=== PATIENT | male | born 1955 | race Caucasian/White ===

== ENCOUNTER 2020-07-09 11:10 | Outpatient (REF) | payer OTHER, SELFPAY | END 2020-07-09 11:11 | disposition home or self-care (01) | LOC: HO.LAB 11:10 | PROVIDERS: Visit Provider Internal Medicine | DX: Z20.828 Contact with and (suspected) exposure to other viral communicable diseases (principal) | CPT/HCPCS: C9803; U0003 ==

== ENCOUNTER 2023-06-28 09:59 | Outpatient (AMB) | payer OTHER, SELFPAY ==
[2023-06-28 10:13] VITALS: BP 152/100; PULSE 64; O2SAT 97; BMI 23.4
--- NOTE | 2023-06-28 10:13 | MHC.PC.OV ---
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: No Accompanied by: Self / Same As Patient Allergies Biaxin Allergy (Intermediate, Verified 12/27/23 13:49) vomiting, nausea Medication List - Last Reconciled 06/28/23 by Baljeet Iqbal MD doxycycline monohydrate 100 mg PO DAILY 30 days lisinopril 10 mg PO DAILY 90 days sildenafil 50 mg PO DAILY PRN 30 days Tobacco use date assessed: 06/28/23 Fall risk assessment: No Falls in past year Last assessed Fall Risk: 06/28/23 Dental Screening Dental Screen Date: 06/28/23 Did you have a dental visit in the last 12 months?: Yes Did you have a dental problem in the last 6 months where you did not have access to dental care?: No Was dental information given to patient?: Patient has dentist HPI pe HPI Details Patient comes in today for his annual physical examination States that he has been struggling with passing out kidney stones repeatedly over the past few months Has not had any bouts in the past 2 weeks and states that he feels okay otherwise He denies any headaches or dizziness Denies any chest pains, no SOB No nausea/vomiting, no abdominal pain No change in bowel habits noted [facility] Medical History (Updated 12/27/23 @ 14:09 by Baljeet Iqbal MD) Renal calculi Vitamin D deficiency Benign essential hypertension Erectile dysfunction Rosacea Surgical History History of colonoscopy History of esophagogastroduodenoscopy (EGD) Family History Father Alzheimers disease Mother Lung cancer Hypertension Brother Throat cancer Social History Housing: House Patient Tobacco Use Status: Never used Tobacco e-Cigarette/Vaping Use: Never Used Second Hand Smoke Exposure: No service: No Current occupational status: employed Cognitive needs: No Hearing needs: No Vision needs: Yes Questionnaire PHQ-9 Over the last 2 weeks, how often have you been bothered by any of the following problems? 1. Little interest or pleasure in doing things: not at all 2. Feeling down, depressed, or hopeless: not at all 3. Trouble falling or staying asleep, or sleeping too much: not at all 4. Feeling tired or having little energy: not at all 5. Poor appetite or overeating: not at all 6. Feeling bad about yourself - or that you are a failure or have let yourself or your family down: not at all 7. Trouble concentrating on things, such as reading the newspaper or watching television: not at all 8. Moving or speaking so slowly that other people could have noticed. Or the opposite - being so fidgety or restless that you have been moving around a lot more than usual: not at all 9. Thoughts that you would be better off or of hurting yourself in some way: not at all Total score: 0 Depression Screening Interpretation: Negative Depression Screening Done: Yes 25342 - PHQ-9 Billing: Yes Source: Developed by Drs. Socrates Dueñas, Tatiana Diego, Augusto Franco and colleagues, with an educational rodney from [employer]. Thrive Questionnaire Date Thrive assessed: 06/28/23 I am a: Patient What is your living situation today?: I have a steady place to live Within the past 12 months, did the food you bought not last and you didn't have the money to get more?: Never true Within the past 12 months, did you worry whether your food would run out before you got money to buy more?: Never true Do you have trouble paying for medicines?: No Do you have trouble getting transportation to medical appointments?: No Do you have trouble paying your heating and electricity bill?: No Do you have trouble taking care of your child, family member or friend?: No Do you have trouble with day-to-day activities such as bathing, preparing meals, shopping, managing finances, etc.?: No Are you currently unemployed and looking for a job?: No Are you interested in more education?: No Currently or been in a relationship where the following occur: no concerns reported AUDIT C Alcohol Use Questionnaire (AUDIT-C) 1. How often do you have a drink containing alcohol?: Monthly or less 2. How many drinks containing alcohol do you have on a typical day when you are drinking?: 1 or 2 3. How often do you have six or more drinks on one occasion?: Never Total Score: 1 Score Reviewed/Action Taken: Yes JULI-7 AMB Questionnaire JULI-7 Date JULI - 7 assessed: 06/28/23 Feeling nervous, anxious, or on edge: 0 = Not at all Not being able to stop or control worryin = Not at all Worrying too much about different things: 0 = Not at all Trouble relaxin = Not at all Being so restless that it is hard to sit still: 0 = Not at all Becoming easily annoyed or irritable: 0 = Not at all Feeling afraid as if something awful might happen: 0 = Not at all Total JULI-7 score (0-4 normal; 5-9 mild; 10-14 moderate; 15-21 severe): 0 Source: Developed by Drs. Socrates Dueñas, Tatiana Diego, Augusto Franco and colleagues, with an educational rodney from [employer]. Review of Systems Const Denies chills, Denies fatigue, Denies fever(s), Denies headache(s), Denies malaise and Denies weakness Eyes Denies blurry vision, Denies change in vision, Denies irritation and Denies itchy eyes ENT Denies dysphagia, Denies dizziness, Denies otalgia, Denies headache(s), Denies nasal congestion, Denies neck pain, Denies odynophagia and Denies sore throat Card Denies chest pain, Denies rapid heart rate, Denies irregular heart rhythm, Denies palpitations and Denies dyspnea Resp Denies chest congestion, Denies cough, Denies dyspnea and Denies wheezing GI Denies abdominal pain, Denies bloating, Denies constipation, Denies dysphagia, Denies heartburn, Denies diarrhea, Denies nausea, Denies odynophagia and Denies vomiting Reports hematuria (at times), Denies difficulty urinating, Reports dysuria (at times recently - due to kidney stones), Reports flank pain (on and off over the left flank recently - due to kidney stones), Denies urinary frequency and Denies urinary urgency Musc Denies back pain, Denies arthralgias, Denies joint swelling, Denies muscle weakness and Denies neck pain Skin/Breast Denies change in pigmentation, Denies lesions, Denies rash and Denies unusual bruising Neuro Denies dizziness, Denies headache(s), Denies paresthesias and Denies weakness Endo Denies fatigue and Denies palpitations Aller/Immun Denies itchy eyes and Denies wheezing Physical exam (Primary Care) Vital Signs: Last Vital Signs Pulse 64 06/28/23 10:13 BP 158/100 H 06/28/23 11:09 Pulse Ox 97 06/28/23 10:13 Oxygen Delivery Method Room Air 06/28/23 10:13 BMI result Body Mass Index 23.4 Tobacco/Smoking Status: Tobacco use Status Tobacco use date assessed 06/28/23 06/28/23 10:19 Patient Tobacco Use Status Never used Tobacco 06/28/23 10:19 e-Cigarette/Vaping Use Never Used 06/28/23 10:19 PHQ-9: PHQ-9 Score PHQ-9: Total score 0 06/28/23 12:42 Depression Screening Interpretation: Negative Thrive Assessment: Date of Thrive Assessment Date Thrive assessed 06/28/23 06/28/23 10:19 Currently or been in a relationship where the following occur: no concerns reported Const General: no acute distress, alert and awake Orientation/consciousness: patient oriented x3 HENMT Head: Yes normocephalic and Yes atraumatic Ears: external ears normal, TM's normal bilaterally and EAC's normal General nose exam: No nasal discharge present Face and sinus: Yes normal facial exam and Yes sinuses nontender Teeth and gingiva: dentition normal Throat: Yes posterior oropharynx normal and Yes tonsils normal (no TP congestion) Eyes Eyelids: Yes eyelids normal Conjunctivae: conjunctivae normal Pupils: Equal, round and reactive pupils present EOM: EOMs intact bilaterally Neck Neck: Yes no lymphadenopathy and Yes supple Thyroid: Thyroid normal Resp Auscultation: clear to auscultation bilaterally, no rales and no wheezes Cardio Rate: regular rate Rhythm: regular rhythm Heart sounds: no murmurs GI Palpation (GI): Soft to palpation, nontender and No hepatosplenomegaly present Auscultation: normal bowel sounds General: Yes no CVA tenderness Back/Spine/Pelvis Back: no CVA tenderness Thoracic/Lumbar Spine: thoracic and lumbar spine normal to inspection Skin Lesions: no lesions Rashes: no rashes Neuro General: patient oriented x3, moves all extremities, no focal motor deficits and CN's II-XI intact bilaterally Cranial nerves: Yes Equal, round and reactive pupils present Cognition (Neuro): normal cognition Gait exam (Neuro): Normal gait present Extrem General: Yes no clubbing, cyanosis or edema Assessment and Plan Assessment & Plan (1) Annual physical exam: Code(s): Z00.00 - Encounter for general adult medical examination without abnormal findings Plan: Check labs - he is instructed to try getting his previously ordered labs done PADMA He is up-to-date with his colon cancer screening and is not yet due for repeat colonoscopy - due in 2024 (2) Benign essential hypertension: Code(s): I10 - Essential (primary) hypertension Plan: Reinforced low sodium diet - goal is systolic BP of 120 to 130 mm or less Continue Lisinopril 10 mg QD (3) Rosacea: Code(s): L71.9 - Rosacea, unspecified Plan: He takes Doxycycline 100 mg QD for at least a month or two as needed for flare ups of his rosacea Follow up with dermatology as scheduled (4) Renal calculi: Code(s): N20.0 - Calculus of kidney Plan: Retroperitoneal US done at [facility] in February 2023 showed (+) 0.4 cm renal stone in the left lower pole of the left kidney Patient states that he has been experiencing recurrent bouts of flank pains and painful urination at times recently - is likely passing out kidney stones but this seems to have calmed down in the past 1 to 2 weeks He is reminded to increase his oral fluid intake regularly (5) Erectile dysfunction: Code(s): N52.9 - Male erectile dysfunction, unspecified Qualifiers: Erectile dysfunction type: unspecified Qualified Code(s): N52.9 - Male erectile dysfunction, unspecified Plan: Continue Sildenafil 50 mg QD PRN (6) Vitamin D deficiency: Code(s): E55.9 - Vitamin D deficiency, unspecified Plan: Corrected on his labs done back on 10/02/2022 Plan Patient is encouraged to continue to watch his diet, exercise regularly and take his medications as prescribed Follow up in 6 months Coding Level of Care Code Est Pt Prev Care >65y(20125) Diagnoses Annual physical exam Z00.00 Benign essential hypertension I10 Rosacea L71.9 Renal calculi N20.0 Erectile dysfunction, unspecified erectile dysfunction type N52.9 Erectile dysfunction type: unspecified Vitamin D deficiency E55.9
[2023-06-28 11:09] VITALS: BP 158/100
== END 2023-06-28 11:19 | disposition home or self-care (01) ==
PROVIDERS: Visit Provider Internal Medicine
DX: Z00.00 Encounter for general adult medical examination without abnormal findings (principal); I10 Essential (primary) hypertension; L71.9 Rosacea, unspecified; N20.0 Calculus of kidney; N52.9 Male erectile dysfunction, unspecified; E55.9 Vitamin D deficiency, unspecified
CPT/HCPCS: 99499

== ENCOUNTER 2023-12-27 13:15 | Outpatient (AMB) | payer MEDICARE, SELFPAY ==
[2023-12-27 13:19] VITALS: BP 134/78; PULSE 65; O2SAT 97; BMI 23.3
--- NOTE | 2023-12-27 13:19 | MHC.PC.OV ---
Vital Signs 12/27/23 13:19 Height 5 ft 9 in Weight 158 lb BMI 23.3 BP 134/78 Blood Pressure Location Lt brachial Position Sitting Pulse 65 Pulse Source Pulse Oximeter Pulse Oximetry (%) 97 Oxygen Delivery Method Room Air Intake Visit Reasons: HTN, renal calculi Special Event Assistant Required: No Allergies Biaxin Allergy (Intermediate, Verified 12/27/23 13:49) vomiting, nausea Medication List - Last Reconciled 12/27/23 by Baljeet Iqbal MD lisinopril 10 mg PO DAILY 90 days sildenafil 50 mg PO DAILY PRN 30 days Tobacco use date assessed: 12/27/23 Fall risk assessment: No Falls in past year Last assessed Fall Risk: 12/27/23 Dental Screening Dental Screen Date: 12/27/23 HPI HTN, renal calculi HPI Details Patient comes in today for his follow up visit States that he feels okay He denies any headaches or dizziness Denies any chest pains, no SOB No nausea/vomiting, no abdominal pain No change in bowel habits noted States that he has not had any flare ups of his kidney stones lately Relates that he had his labs done sometime last June or July 2023 at the lab at [facility] - would like to know if his results came out okay Also needs his Lisinopril Rx refilled PFSH Medical History (Updated 12/27/23 @ 14:09 by Baljeet Iqbal MD) Renal calculi Vitamin D deficiency Benign essential hypertension Erectile dysfunction Rosacea Surgical History History of colonoscopy History of esophagogastroduodenoscopy (EGD) Family History Father Alzheimers disease Mother Lung cancer Hypertension Brother Throat cancer Social History Housing: House Patient Tobacco Use Status: Never used Tobacco e-Cigarette/Vaping Use: Never Used Second Hand Smoke Exposure: No service: No Current occupational status: employed Cognitive needs: No Hearing needs: No Vision needs: Yes Questionnaire PHQ-9 Over the last 2 weeks, how often have you been bothered by any of the following problems? 1. Little interest or pleasure in doing things: not at all 2. Feeling down, depressed, or hopeless: not at all 3. Trouble falling or staying asleep, or sleeping too much: not at all 4. Feeling tired or having little energy: not at all 5. Poor appetite or overeating: not at all 6. Feeling bad about yourself - or that you are a failure or have let yourself or your family down: not at all 7. Trouble concentrating on things, such as reading the newspaper or watching television: not at all 8. Moving or speaking so slowly that other people could have noticed. Or the opposite - being so fidgety or restless that you have been moving around a lot more than usual: not at all 9. Thoughts that you would be better off or of hurting yourself in some way: not at all Total score: 0 Depression Screening Interpretation: Negative Depression Screening Done: Yes 11950 - PHQ-9 Billing: Yes Source: Developed by Drs. Socrates Dueñas, Tatiana Diego, Augusto Franco and colleagues, with an educational rodney from [employer]. Thrive Questionnaire Date Thrive assessed: 12/27/23 I am a: Patient What is your living situation today?: I have a steady place to live Within the past 12 months, did the food you bought not last and you didn't have the money to get more?: Never true Within the past 12 months, did you worry whether your food would run out before you got money to buy more?: Never true Do you have trouble paying for medicines?: No Do you have trouble getting transportation to medical appointments?: No Do you have trouble paying your heating and electricity bill?: No Do you have trouble taking care of your child, family member or friend?: No Do you have trouble with day-to-day activities such as bathing, preparing meals, shopping, managing finances, etc.?: No Are you currently unemployed and looking for a job?: No Are you interested in more education?: No Currently or been in a relationship where the following occur: no concerns reported THRIVE Score: 0 AUDIT C Alcohol Use Questionnaire (AUDIT-C) 1. How often do you have a drink containing alcohol?: Monthly or less 2. How many drinks containing alcohol do you have on a typical day when you are drinking?: 1 or 2 3. How often do you have six or more drinks on one occasion?: Never Total Score: 1 Score Reviewed/Action Taken: Yes JULI-7 AMB Questionnaire JULI-7 Date JULI - 7 assessed: 06/28/23 Source: Developed by Drs. Socrates Dueñas, Tatiana Diego, Augusto Franco and colleagues, with an educational rodney from [employer]. Review of Systems Const Denies chills, Denies fatigue, Denies fever(s) and Denies headache(s) ENT Denies dysphagia, Denies dizziness, Denies otalgia, Denies headache(s), Denies neck pain, Denies odynophagia and Denies sore throat Card Denies chest pain, Denies palpitations and Denies dyspnea Resp Denies cough and Denies dyspnea GI Denies abdominal pain, Denies constipation, Denies dysphagia, Denies heartburn, Denies diarrhea, Denies nausea, Denies odynophagia and Denies vomiting Denies hematuria, Denies dysuria, Denies nocturia and Denies urinary frequency Musc Denies back pain and Denies neck pain Skin/Breast Denies rash Neuro Denies dizziness and Denies headache(s) Endo Denies fatigue and Denies palpitations Physical exam (Primary Care) Vital Signs: Last Vital Signs Pulse 65 12/27/23 13:19 BP 134/78 12/27/23 13:19 Pulse Ox 97 12/27/23 13:19 Oxygen Delivery Method Room Air 12/27/23 13:19 BMI result Body Mass Index 23.3 Tobacco/Smoking Status: Tobacco use Status Tobacco use date assessed 12/27/23 12/27/23 13:20 Patient Tobacco Use Status Never used Tobacco 12/27/23 13:20 e-Cigarette/Vaping Use Never Used 12/27/23 13:20 PHQ-9: PHQ-9 Score PHQ-9: Total score 0 12/27/23 13:20 Depression Screening Interpretation: Negative Thrive Assessment: Date of Thrive Assessment Date Thrive assessed 12/27/23 12/27/23 13:20 Currently or been in a relationship where the following occur: no concerns reported Const General: no acute distress and alert HENMT Throat: Yes posterior oropharynx normal and Yes tonsils normal (no TP congestion) Neck Neck: Yes no lymphadenopathy and Yes supple Thyroid: Thyroid normal Resp Auscultation: clear to auscultation bilaterally, no rales and no wheezes Cardio Rate: regular rate Rhythm: regular rhythm Heart sounds: no murmurs GI Palpation (GI): Soft to palpation and nontender Auscultation: normal bowel sounds General: Yes no CVA tenderness Back/Spine/Pelvis Back: no CVA tenderness Thoracic/Lumbar Spine: No lumbar spinal tenderness Skin Rashes: no rashes Extrem General: Yes no clubbing, cyanosis or edema Assessment and Plan Assessment & Plan (1) Benign essential hypertension: Code(s): I10 - Essential (primary) hypertension Plan: Reinforced low sodium diet - goal is systolic BP of 120 to 130 mm or less Continue Lisinopril 10 mg QD - Rx refilled Will try to get [facility] labs to send over a copy of his most recent lab results done late last year - patient advised that we have not received a copy of his most recent labs done so we are not able to discuss his results with him at this time Advised that we will reach out to him when we have his results and there is anything unusual that comes up on his reports (2) Rosacea: Code(s): L71.9 - Rosacea, unspecified Plan: He takes Doxycycline 100 mg QD for at least a month or two as needed for flare ups of his rosacea Follow up with dermatology as scheduled (3) Vitamin D deficiency: Code(s): E55.9 - Vitamin D deficiency, unspecified Plan: Will see how his most recent vitamin D level is once we get his lab results in His vitamin D level was corrected/normal when last checked over a year ago (4) Renal calculi: Code(s): N20.0 - Calculus of kidney Plan: Retroperitoneal US done at [facility] in February 2023 showed (+) 0.4 cm renal stone in the left lower pole of the left kidney Patient states that he has not had any bouts or flare ups of his kidney stones lately He is reminded to increase his oral fluid intake regularly (5) Erectile dysfunction: Code(s): N52.9 - Male erectile dysfunction, unspecified Qualifiers: Erectile dysfunction type: unspecified Qualified Code(s): N52.9 - Male erectile dysfunction, unspecified Plan: Continue Sildenafil 50 mg QD PRN Plan To return in 6 months for his next annual physical examination Orders: Orders Complete Blood Count Auto Diff 6 Months D64.9 - Anemia, unspecified, Z00.00 - Encounter for general adult medical examination without abnormal findings TSH reflex Free T4 6 Months E78.00 - Pure hypercholesterolemia, unspecified, Z00.00 - Encounter for general adult medical examination without abnormal findings Comprehensive [place]. Panel Fast 6 Months E78.00 - Pure hypercholesterolemia, unspecified, Z00.00 - Encounter for general adult medical examination without abnormal findings Lipid Panel 6 Months E78.00 - Pure hypercholesterolemia, unspecified, Z00.00 - Encounter for general adult medical examination without abnormal findings UA CC w/rflx Micro + Cult 6 Months R30.0 - Dysuria, Z00.00 - Encounter for general adult medical examination without abnormal findings Prostate Specific Antigen 6 Months N40.0 - Benign prostatic hyperplasia without lower urinary tract symptoms, Z00.00 - Encounter for general adult medical examination without abnormal findings Vitamin D 25-OH Total 6 Months E55.9 - Vitamin D deficiency, unspecified, Z00.00 - Encounter for general adult medical examination without abnormal findings Medications: Refilled lisinopril 10 mg PO DAILY 90 days 90 tabs 3RF Coding Level of Care Code Est Pt Level 4 (14863) Diagnoses Benign essential hypertension I10 Rosacea L71.9 Vitamin D deficiency E55.9 Renal calculi N20.0 Erectile dysfunction, unspecified erectile dysfunction type N52.9 Erectile dysfunction type: unspecified
== END 2023-12-27 13:58 | disposition home or self-care (01) ==
PROVIDERS: PCP Internal Medicine; Visit Provider Internal Medicine
DX: I10 Essential (primary) hypertension (principal); L71.9 Rosacea, unspecified; E55.9 Vitamin D deficiency, unspecified; N20.0 Calculus of kidney; N52.9 Male erectile dysfunction, unspecified
CPT/HCPCS: 99214

== ENCOUNTER 2024-06-26 09:54 | Outpatient (AMB) | payer MEDICARE, SELFPAY ==
[2024-06-26 10:37] VITALS: BP 130/70; PULSE 71; O2SAT 97; BMI 23.4
--- NOTE | 2024-06-26 10:37 | A.OFFPC_ITS ---
Vital Signs 06/26/24 10:37 Height 5 ft 9 in Weight 158 lb 6 oz BMI 23.4 BP 130/70 Blood Pressure Location Lt brachial Position Sitting Pulse 71 Pulse Source Pulse Oximeter Pulse Oximetry (%) 97 Oxygen Delivery Method Room Air Intake Visit Reasons: annual exam Shoe Dresser Required: No Accompanied by: Self / Same As Patient Allergies Biaxin Allergy (Intermediate, Verified 06/26/24 11:17) vomiting, nausea Medication List - Last Reconciled 06/26/24 by Baljeet Iqbal MD doxycycline monohydrate 100 mg PO DAILY PRN lisinopril 10 mg PO DAILY 90 days sildenafil 50 mg PO DAILY PRN 30 days Tobacco use date assessed: 06/26/24 Fall risk assessment: No Falls in past year Last assessed Fall Risk: 06/26/24 Dental Screening Dental Screen Date: 06/26/24 Did you have a dental visit in the last 12 months?: No Did you have a dental problem in the last 6 months where you did not have access to dental care?: No Was dental information given to patient?: Patient has dentist HPI annual exam HPI Details Patient comes in today for his annual physical examination States that he feels okay He denies any headaches or dizziness Denies any chest pains, no SOB No nausea/vomiting, no abdominal pain No change in bowel habits noted He denies any acute urinary symptoms He was not able to get his follow-up labs done prior to his visit today - states that he will try to get them done as soon as possible He had his screening colonoscopy done back in September 2014 at [facility] and he will be due for repeat colonoscopy in a few months (2024) [facility] Medical History Renal calculi Vitamin D deficiency Benign essential hypertension Erectile dysfunction Rosacea Surgical History History of colonoscopy History of esophagogastroduodenoscopy (EGD) Family History Father Alzheimers disease Mother Lung cancer Hypertension Brother Throat cancer Social History Housing: House Patient Tobacco Use Status: Never used Tobacco e-Cigarette/Vaping Use: Never Used Second Hand Smoke Exposure: No service: No Current occupational status: employed Cognitive needs: No Hearing needs: No Vision needs: Yes Questionnaire PHQ-9 Over the last 2 weeks, how often have you been bothered by any of the following problems? 1. Little interest or pleasure in doing things: not at all 2. Feeling down, depressed, or hopeless: not at all 3. Trouble falling or staying asleep, or sleeping too much: not at all 4. Feeling tired or having little energy: not at all 5. Poor appetite or overeating: not at all 6. Feeling bad about yourself - or that you are a failure or have let yourself or your family down: not at all 7. Trouble concentrating on things, such as reading the newspaper or watching television: not at all 8. Moving or speaking so slowly that other people could have noticed. Or the opposite - being so fidgety or restless that you have been moving around a lot more than usual: not at all 9. Thoughts that you would be better off or of hurting yourself in some way: not at all Total score: 0 Depression Screening Interpretation: Negative Depression Screening Done: Yes 46847 - PHQ-9 Billing: Yes Source: Developed by Drs. Socrates Dueñas, Tatiana Diego, Augusto Franco and colleagues, with an educational rodney from [employer]. Thrive Questionnaire Date Thrive assessed: 06/26/24 I am a: Patient What is your living situation today?: I have a steady place to live Within the past 12 months, did the food you bought not last and you didn't have the money to get more?: Never true Within the past 12 months, did you worry whether your food would run out before you got money to buy more?: Never true Do you have trouble paying for medicines?: No Do you have trouble getting transportation to medical appointments?: No Do you have trouble paying your heating and electricity bill?: No Do you have trouble taking care of your child, family member or friend?: No Do you have trouble with day-to-day activities such as bathing, preparing meals, shopping, managing finances, etc.?: No Are you currently unemployed and looking for a job?: No Are you interested in more education?: No Please select the resources that you would like help with: None Currently or been in a relationship where the following occur: No concerns reported THRIVE Score: 0 AUDIT C Alcohol Use Questionnaire (AUDIT-C) 1. How often do you have a drink containing alcohol?: Monthly or less 2. How many drinks containing alcohol do you have on a typical day when you are drinking?: 1 or 2 3. How often do you have six or more drinks on one occasion?: Never Total Score: 1 Score Reviewed/Action Taken: Yes JULI-7 AMB Questionnaire JULI-7 Date JULI - 7 assessed: 06/26/24 Feeling nervous, anxious, or on edge: 0 = Not at all Not being able to stop or control worryin = Not at all Worrying too much about different things: 0 = Not at all Trouble relaxin = Not at all Being so restless that it is hard to sit still: 0 = Not at all Becoming easily annoyed or irritable: 0 = Not at all Feeling afraid as if something awful might happen: 0 = Not at all Total JULI-7 score (0-4 normal; 5-9 mild; 10-14 moderate; 15-21 severe): 0 Source: Developed by Drs. Socrates Dueñas, Tatiana Diego, Augusto Franco and colleagues, with an educational rodney from [employer]. Review of Systems Const Denies chills, Denies fatigue, Denies fever(s), Denies headache(s), Denies malaise and Denies weakness Eyes Denies blurry vision, Denies change in vision, Denies irritation and Denies itchy eyes ENT Denies dysphagia, Denies dizziness, Denies otalgia, Denies headache(s), Denies nasal congestion, Denies neck pain, Denies odynophagia and Denies sore throat Card Denies chest pain, Denies rapid heart rate, Denies irregular heart rhythm, Denies palpitations and Denies dyspnea Resp Denies chest congestion, Denies cough, Denies dyspnea and Denies wheezing GI Denies abdominal pain, Denies bloating, Denies constipation, Denies dysphagia, Denies heartburn, Denies diarrhea, Denies nausea, Denies odynophagia and Denies vomiting Denies hematuria, Denies difficulty urinating, Denies dysuria, Denies urinary frequency and Denies urinary urgency Musc Denies back pain, Denies arthralgias, Denies joint swelling, Denies muscle wea kness and Denies neck pain Skin/Breast Denies change in pigmentation, Denies lesions, Denies rash and Denies unusual bruising Neuro Denies dizziness, Denies headache(s), Denies paresthesias and Denies weakness Endo Denies fatigue and Denies palpitations Aller/Immun Denies itchy eyes and Denies wheezing Physical exam (Primary Care) Vital Signs: Last Vital Signs Pulse 71 06/26/24 10:37 BP 130/70 06/26/24 10:37 Pulse Ox 97 06/26/24 10:37 Oxygen Delivery Method Room Air 06/26/24 10:37 BMI result Body Mass Index 23.4 Tobacco/Smoking Status: Tobacco use Status Tobacco use date assessed 06/26/24 06/26/24 10:41 Patient Tobacco Use Status Never used Tobacco 06/26/24 10:41 e-Cigarette/Vaping Use Never Used 06/26/24 10:41 PHQ-9: PHQ-9 Score PHQ-9: Total score 0 06/26/24 11:27 Depression Screening Interpretation: Negative Thrive Assessment: Date of Thrive Assessment Date Thrive assessed 06/26/24 06/26/24 10:41 Currently or been in a relationship where the following occur: No concerns reported Const General: no acute distress, alert and awake Orientation/consciousness: patient oriented x3 HENMT Head: Yes normocephalic and Yes atraumatic Ears: external ears normal, TM's normal bilaterally and EAC's normal General nose exam: No nasal discharge present Face and sinus: Yes normal facial exam and Yes sinuses nontender Teeth and gingiva: dentition normal Throat: Yes posterior oropharynx normal and Yes tonsils normal (no TP congestion) Eyes Eyelids: Yes eyelids normal Conjunctivae: conjunctivae normal Pupils: Equal, round and reactive pupils present EOM: EOMs intact bilaterally Neck Neck: Yes no lymphadenopathy and Yes supple Thyroid: Thyroid normal Resp Auscultation: clear to auscultation bilaterally, no rales and no wheezes Cardio Rate: regular rate Rhythm: regular rhythm Heart sounds: no murmurs GI Palpation (GI): Soft to palpation, nontender and No hepatosplenomegaly present Auscultation: normal bowel sounds General: Yes no CVA tenderness Back/Spine/Pelvis Back: no CVA tenderness Thoracic/Lumbar Spine: thoracic and lumbar spine normal to inspection Skin Lesions: no lesions Rashes: no rashes Neuro General: patient oriented x3, moves all extremities, no focal motor deficits and CN's II-XI intact bilaterally Cranial nerves: Yes Equal, round and reactive pupils present Cognition (Neuro): normal cognition Gait exam (Neuro): Normal gait present Extrem General: Yes no clubbing, cyanosis or edema Coding Level of Care Code Est Pt Prev Care >65y(20732) Diagnoses Annual physical exam Z00.00 Benign essential hypertension I10 Rosacea L71.9 Vitamin D deficiency E55.9 Renal calculi N20.0 Erectile dysfunction, unspecified erectile dysfunction type N52.9 Erectile dysfunction type: unspecified Colon cancer screening Z12.11 Additional Codes PHQ-9 - 66822 - PHQ-9 Billing: Yes ([id number]) Assessment & Plan Assessment & Plan (1) Annual physical exam: Code(s): Z00.00 - Encounter for general adult medical examination without abnormal findings Category: Medical Plan: Patient is instructed to try getting his previously ordered follow-up labs done PADMA He will be due for his repeat colonoscopy in a couple of months - we will go ahead and make out a referral for him with gastroenterology over [facility] to get this started (2) Benign essential hypertension: Code(s): I10 - Essential (primary) hypertension Category: Medical Plan: Reinforced low sodium diet - goal is systolic BP of 120 to 130 mm or less Continue Lisinopril 10 mg QD - Rx refilled (3) Rosacea: Code(s): L71.9 - Rosacea, unspecified Category: Medical Plan: He takes Doxycycline 100 mg QD for at least a month or two as needed for flare ups of his rosacea Follow up with dermatology as scheduled (4) Vitamin D deficiency: Code(s): E55.9 - Vitamin D deficiency, unspecified Category: Medical Plan: Will recheck his vitamin-D level for follow-up (5) Renal calculi: Code(s): N20.0 - Calculus of kidney Category: Medical Plan: Retroperitoneal US done at [facility] in February 2023 showed (+) 0.4 cm renal stone in the left lower pole of the left kidney Patient states that he has not had any bouts or flare ups of his kidney stones lately He is reminded to increase his oral fluid intake regularly (6) Erectile dysfunction: Code(s): N52.9 - Male erectile dysfunction, unspecified Category: Medical Qualifiers: Erectile dysfunction type: unspecified Qualified Code(s): N52.9 - Male erectile dysfunction, unspecified Plan: Continue Sildenafil 50 mg QD PRN (7) Colon cancer screening: Code(s): Z12.11 - Encounter for screening for malignant neoplasm of colon Category: Medical Plan: Per request, will refer him to [facility] GI at [facility] for his repeat colonoscopy, which will be due in less than 2 months Plan Follow-up in 6 months Orders: Referrals Gastroenterology Referral Z12.11 - Encounter for screening for malignant neoplasm of colon Medications: New doxycycline monohydrate 100 mg PO DAILY 90 days PRN 90 caps 1RF rosacea flare up L71.9 - Rosacea, unspecified
== END 2024-06-26 11:28 | disposition home or self-care (01) ==
PROVIDERS: PCP Internal Medicine; Visit Provider Internal Medicine
DX: Z00.00 Encounter for general adult medical examination without abnormal findings (principal); I10 Essential (primary) hypertension; L71.9 Rosacea, unspecified; E55.9 Vitamin D deficiency, unspecified; N20.0 Calculus of kidney; N52.9 Male erectile dysfunction, unspecified; Z12.11 Encounter for screening for malignant neoplasm of colon

== ENCOUNTER → 2024-06-26 09:54 | Outpatient (BNVA) | payer MEDICARE, OTHER, SELFPAY | PROVIDERS: PCP Internal Medicine; Visit Provider Internal Medicine | DX: Z00.00 Encounter for general adult medical examination without abnormal findings (principal); I10 Essential (primary) hypertension; L71.9 Rosacea, unspecified; E55.9 Vitamin D deficiency, unspecified; N20.0 Calculus of kidney; N52.9 Male erectile dysfunction, unspecified | CPT/HCPCS: 96127; 99397 ==

== ENCOUNTER 2024-12-24 09:01 | Outpatient (AMB) | payer MEDICARE, OTHER, SELFPAY ==
[2024-12-24 09:10] VITALS: BP 130/80; PULSE 73; O2SAT 96; BMI 23.5
--- NOTE | 2024-12-24 09:10 | MHC.PC.OV ---
Vital Signs 12/24/24 09:10 Height 5 ft 9 in Weight 159 lb 2 oz BMI 23.5 BP 130/80 Blood Pressure Location Lt brachial Position Sitting Pulse 73 Pulse Source Pulse Oximeter Pulse Oximetry (%) 96 Oxygen Delivery Method Room Air Intake Visit Reasons: 6 Months f/u Thread Trimmer Required: No Accompanied by: Self / Same As Patient Allergies Biaxin Allergy (Intermediate, Verified 12/24/24 09:19) vomiting, nausea Medication List - Last Reconciled 12/24/24 by Baljeet Iqbal MD doxycycline monohydrate 100 mg PO DAILY PRN 90 days lisinopril 10 mg PO DAILY 90 days sildenafil 50 mg PO DAILY PRN 30 days Tobacco use date assessed: 12/24/24 Fall risk assessment: No Falls in past year Last assessed Fall Risk: 12/24/24 Dental Screening Dental Screen Date: 12/24/24 Did you have a dental visit in the last 12 months?: No Did you have a dental problem in the last 6 months where you did not have access to dental care?: No Was dental information given to patient?: No HPI 6 Months f/u HPI Details Patient comes in today for his follow up visit States that he feels okay He denies any headaches or dizziness Denies any chest pains, no SOB No nausea/vomiting, no abdominal pain No change in bowel habits noted States that he got his labs done at [facility] labs shortly after his physical exam a few months ago He was also referred to GI at [facility] for repeat colonoscopy but states that he has not yet been able to schedule an appointment with them [facility] Medical History Renal calculi Vitamin D deficiency Benign essential hypertension Erectile dysfunction Rosacea Surgical History History of colonoscopy History of esophagogastroduodenoscopy (EGD) Family History Father Alzheimers disease Mother Lung cancer Hypertension Brother Throat cancer Social History Housing: House Patient Tobacco Use Status: Never used Tobacco e-Cigarette/Vaping Use: Never Used Second Hand Smoke Exposure: No service: No Current occupational status: employed Cognitive needs: No Hearing needs: No Vision needs: Yes Questionnaire PHQ-9 Over the last 2 weeks, how often have you been bothered by any of the following problems? 1. Little interest or pleasure in doing things: not at all 2. Feeling down, depressed, or hopeless: not at all 3. Trouble falling or staying asleep, or sleeping too much: not at all 4. Feeling tired or having little energy: not at all 5. Poor appetite or overeating: not at all 6. Feeling bad about yourself - or that you are a failure or have let yourself or your family down: not at all 7. Trouble concentrating on things, such as reading the newspaper or watching television: not at all 8. Moving or speaking so slowly that other people could have noticed. Or the opposite - being so fidgety or restless that you have been moving around a lot more than usual: not at all 9. Thoughts that you would be better off or of hurting yourself in some way: not at all Total score: 0 Depression Screening Interpretation: Negative Depression Screening Done: Yes 91256 - PHQ-9 Billing: Yes Source: Developed by Drs. Socrates Dueñas, Tatiana Diego, Augusto Franco and colleagues, with an educational rodney from [employer]. Thrive Questionnaire Date Thrive assessed: 12/24/24 I am a: Patient What is your living situation today?: I have a steady place to live Within the past 12 months, did the food you bought not last and you didn't have the money to get more?: Never true Within the past 12 months, did you worry whether your food would run out before you got money to buy more?: Never true Do you have trouble paying for medicines?: No Do you have trouble getting transportation to medical appointments?: No Do you have trouble paying your heating and electricity bill?: No Do you have trouble taking care of your child, family member or friend?: No Do you have trouble with day-to-day activities such as bathing, preparing meals, shopping, managing finances, etc.?: No Are you currently unemployed and looking for a job?: No Are you interested in more education?: No Please select the resources that you would like help with: None Currently or been in a relationship where the following occur: No concerns reported THRIVE Score: 0 AUDIT C Alcohol Use Questionnaire (AUDIT-C) 1. How often do you have a drink containing alcohol?: Monthly or less 2. How many drinks containing alcohol do you have on a typical day when you are drinking?: 1 or 2 3. How often do you have six or more drinks on one occasion?: Never Total Score: 1 Score Reviewed/Action Taken: Yes JLUI-7 AMB Questionnaire JULI-7 Date JULI - 7 assessed: 12/24/24 Feeling nervous, anxious, or on edge: 0 = Not at all Not being able to stop or control worryin = Not at all Worrying too much about different things: 0 = Not at all Trouble relaxin = Not at all Being so restless that it is hard to sit still: 0 = Not at all Becoming easily annoyed or irritable: 0 = Not at all Feeling afraid as if something awful might happen: 0 = Not at all Total JULI-7 score (0-4 normal; 5-9 mild; 10-14 moderate; 15-21 severe): 0 Source: Developed by Drs. Socrates Dueñas, Tatiana Diego, Augusto Franco and colleagues, with an educational rodney from [employer]. Review of Systems Const Denies chills, Denies fatigue, Denies fever(s) and Denies headache(s) ENT Denies dysphagia, Denies dizziness, Denies otalgia, Denies headache(s), Denies neck pain, Denies odynophagia and Denies sore throat Card Denies chest pain, Denies irregular heart rhythm, Denies palpitations and Denies dyspnea Resp Denies chest congestion, Denies cough and Denies dyspnea GI Denies abdominal pain, Denies constipation, Denies dysphagia, Denies heartburn, Denies diarrhea, Denies nausea, Denies odynophagia and Denies vomiting Denies difficulty urinating, Denies dysuria and Denies urinary frequency Musc Denies back pain, Denies arthralgias and Denies neck pain Skin/Breast Denies rash Neuro Denies dizziness, Denies headache(s) and Denies paresthesias Endo Denies fatigue and Denies palpitations Physical exam (Primary Care) Vital Signs: Last Vital Signs Pulse 73 12/24/24 09:10 BP 130/80 12/24/24 09:10 Pulse Ox 96 12/24/24 09:10 Oxygen Delivery Method Room Air 12/24/24 09:10 BMI result Body Mass Index 23.5 Tobacco/Smoking Status: Tobacco use Status Tobacco use date assessed 12/24/24 12/24/24 09:16 Patient Tobacco Use Status Never used Tobacco 12/24/24 09:16 e-Cigarette/Vaping Use Never Used 12/24/24 09:16 PHQ-9: PHQ-9 Score PHQ-9: Total score 0 12/24/24 09:23 Depression Screening Interpretation: Negative Thrive Assessment: Date of Thrive Assessment Date Thrive assessed 12/24/24 12/24/24 09:16 Currently or been in a relationship where the following occur: No concerns reported Const General: no acute distress and alert HENMT Ears: TM's normal bilaterally and EAC's normal Throat: Yes posterior oropharynx normal and Yes tonsils normal (no TP congestion) Neck Neck: Yes no lymphadenopathy and Yes supple Thyroid: Thyroid normal Resp Auscultation: clear to auscultation bilaterally, no rales and no wheezes Cardio Rate: regular rate Rhythm: regular rhythm Heart sounds: no murmurs GI Palpation (GI): Soft to palpation and nontender Auscultation: normal bowel sounds General: Yes no CVA tenderness Back/Spine/Pelvis Back: no CVA tenderness Thoracic/Lumbar Spine: No lumbar spinal tenderness Skin Rashes: no rashes Extrem General: Yes no clubbing, cyanosis or edema Coding Level of Care Code Est Pt Level 4 (24781) Diagnoses Benign essential hypertension I10 Rosacea L71.9 Vitamin D deficiency E55.9 Renal calculi N20.0 Erectile dysfunction, unspecified erectile dysfunction type N52.9 Erectile dysfunction type: unspecified Additional Codes PHQ-9 - 09735 - PHQ-9 Billing: Yes ([id number]) Assessment & Plan Assessment & Plan (1) Benign essential hypertension: Code(s): I10 - Essential (primary) hypertension Category: Medical Plan: Reinforced low sodium diet - goal is systolic BP of 120 to 130 mm or less Continue Lisinopril 10 mg QD Will try to obtain a copy of his recent labs done at [facility] a few months ago for review (2) Rosacea: Code(s): L71.9 - Rosacea, unspecified Category: Medical Plan: He takes Doxycycline 100 mg QD for at least a month or two as needed for flare ups of his rosacea Follow up with dermatology as scheduled (3) Vitamin D deficiency: Code(s): E55.9 - Vitamin D deficiency, unspecified Category: Medical Plan: He had his Vitamin D level rechecked a few months ago and we will try to get a copy of his recent labs sent over for review and documentation (4) Renal calculi: Code(s): N20.0 - Calculus of kidney Category: Medical Plan: Retroperitoneal US done at [facility] in February 2023 showed (+) 0.4 cm renal stone in the left lower pole of the left kidney Patient states that he has not had any bouts or flare ups of his kidney stones lately He is reminded to increase his oral fluid intake regularly (5) Erectile dysfunction: Code(s): N52.9 - Male erectile dysfunction, unspecified Category: Medical Qualifiers: Erectile dysfunction type: unspecified Qualified Code(s): N52.9 - Male erectile dysfunction, unspecified Plan: Continue Sildenafil 50 mg QD PRN Plan To return in 6 months for his next annual physical examination Orders: Orders Lipid Panel 6 Months E78.00 - Pure hypercholesterolemia, unspecified, Z00.00 - Encounter for general adult medical examination without abnormal findings Comprehensive [place]. Panel Fast 6 Months E78.00 - Pure hypercholesterolemia, unspecified, Z00.00 - Encounter for general adult medical examination without abnormal findings UA CC w/rflx Micro + Cult 6 Months R30.0 - Dysuria, Z00.00 - Encounter for general adult medical examination without abnormal findings Vitamin D 25-OH Total 6 Months E55.9 - Vitamin D deficiency, unspecified, Z00.00 - Encounter for general adult medical examination without abnormal findings Complete Blood Count Auto Diff 6 Months D64.9 - Anemia, unspecified, Z00.00 - Encounter for general adult medical examination without abnormal findings TSH reflex Free T4 6 Months E78.00 - Pure hypercholesterolemia, unspecified, Z00.00 - Encounter for general adult medical examination without abnormal findings Prostate Specific Antigen 6 Months N40.0 - Benign prostatic hyperplasia without lower urinary tract symptoms, Z00.00 - Encounter for general adult medical examination without abnormal findings
== END 2024-12-24 09:43 | disposition home or self-care (01) ==
LOC: HO.HMCH 09:01
PROVIDERS: PCP Internal Medicine; Visit Provider Internal Medicine
DX: I10 Essential (primary) hypertension (principal); L71.9 Rosacea, unspecified; E55.9 Vitamin D deficiency, unspecified; N20.0 Calculus of kidney; N52.9 Male erectile dysfunction, unspecified

== ENCOUNTER → 2024-12-24 09:01 | Outpatient (BNVA) | payer MEDICARE, SELFPAY | PROVIDERS: PCP Internal Medicine; Visit Provider Internal Medicine | DX: I10 Essential (primary) hypertension (principal); E55.9 Vitamin D deficiency, unspecified; N20.0 Calculus of kidney; L71.9 Rosacea, unspecified; N52.9 Male erectile dysfunction, unspecified | CPT/HCPCS: 96127; 99212 ==

== ENCOUNTER 2025-02-20 15:23 | Outpatient (AMB) | payer MEDICARE, SELFPAY ==
[2025-02-20 15:26] VITALS: BP 138/82; PULSE 70; O2SAT 96; BMI 23.6
--- NOTE | 2025-02-20 15:26 | A.OFFPC_ITS ---
Vital Signs 02/20/25 15:26 Height 5 ft 9 in Weight 159 lb 8 oz BMI 23.6 BP 138/82 Blood Pressure Location Lt brachial Position Sitting Pulse 70 Pulse Source Pulse Oximeter Pulse Oximetry (%) 96 Oxygen Delivery Method Room Air Intake Visit Reasons: hernia left side Postal Mail Carrier Required: No Accompanied by: Self / Same As Patient Allergies Biaxin Allergy (Intermediate, Verified 02/20/25 15:53) vomiting, nausea Medication List - Last Reconciled 02/20/25 by Baljeet Iqbal MD doxycycline monohydrate 100 mg PO DAILY PRN 90 days lisinopril 10 mg PO DAILY 90 days sildenafil 50 mg PO DAILY PRN 30 days Tobacco use date assessed: 02/20/25 Fall risk assessment: No Falls in past year Last assessed Fall Risk: 02/20/25 Dental Screening Dental Screen Date: 02/20/25 Did you have a dental visit in the last 12 months?: No Did you have a dental problem in the last 6 months where you did not have access to dental care?: No Was dental information given to patient?: No HPI hernia left side HPI Details Patient comes in today for evaluation of what he thinks is a hernia States that this first appeared about 4 weeks ago when he was doing some ismoetric exercises at home States that he has not been doing any heavy lifting lately but still does a lot of physical work at home and notes (+) some pain over his left inguinal mass at times with increased activity or prolonged standing States that the left inguinal mass does not really limits him activity-dyer and he has no other acute issues or complaints [facility] Medical History Renal calculi Vitamin D deficiency Benign essential hypertension Erectile dysfunction Rosacea Surgical History History of colonoscopy History of esophagogastroduodenoscopy (EGD) Family History Father Alzheimers disease Mother Lung cancer Hypertension Brother Throat cancer Social History Housing: House Patient Tobacco Use Status: Never used Tobacco e-Cigarette/Vaping Use: Never Used Second Hand Smoke Exposure: No service: No Current occupational status: employed Cognitive needs: No Hearing needs: No Vision needs: Yes Questionnaire PHQ-9 Over the last 2 weeks, how often have you been bothered by any of the following problems? 1. Little interest or pleasure in doing things: not at all 2. Feeling down, depressed, or hopeless: not at all 3. Trouble falling or staying asleep, or sleeping too much: not at all 4. Feeling tired or having little energy: not at all 5. Poor appetite or overeating: not at all 6. Feeling bad about yourself - or that you are a failure or have let yourself or your family down: not at all 7. Trouble concentrating on things, such as reading the newspaper or watching television: not at all 8. Moving or speaking so slowly that other people could have noticed. Or the opposite - being so fidgety or restless that you have been moving around a lot more than usual: not at all 9. Thoughts that you would be better off or of hurting yourself in some way: not at all Total score: 0 Depression Screening Interpretation: Negative Depression Screening Done: Yes 01997 - PHQ-9 Billing: Yes Source: Developed by Drs. Socrates Dueñas, Tatiana Diego, Augusto Franco and colleagues, with an educational rodney from [employer]. Thrive Questionnaire Date Thrive assessed: 02/20/25 I am a: Patient What is your living situation today?: I have a steady place to live Within the past 12 months, did the food you bought not last and you didn't have the money to get more?: Never true Within the past 12 months, did you worry whether your food would run out before you got money to buy more?: Never true Do you have trouble paying for medicines?: No Do you have trouble getting transportation to medical appointments?: No Do you have trouble paying your heating and electricity bill?: No Do you have trouble taking care of your child, family member or friend?: No Do you have trouble with day-to-day activities such as bathing, preparing meals, shopping, managing finances, etc.?: No Are you currently unemployed and looking for a job?: No Are you interested in more education?: No Please select the resources that you would like help with: None Currently or been in a relationship where the following occur: No concerns reported THRIVE Score: 0 AUDIT C Alcohol Use Questionnaire (AUDIT-C) 1. How often do you have a drink containing alcohol?: Monthly or less 2. How many drinks containing alcohol do you have on a typical day when you are drinking?: 1 or 2 3. How often do you have six or more drinks on one occasion?: Never Total Score: 1 Score Reviewed/Action Taken: Yes JULI-7 AMB Questionnaire JULI-7 Date JULI - 7 assessed: 02/20/25 Feeling nervous, anxious, or on edge: 0 = Not at all Not being able to stop or control worryin = Not at all Worrying too much about different things: 0 = Not at all Trouble relaxin = Not at all Being so restless that it is hard to sit still: 0 = Not at all Becoming easily annoyed or irritable: 0 = Not at all Feeling afraid as if something awful might happen: 0 = Not at all Total JULI-7 score (0-4 normal; 5-9 mild; 10-14 moderate; 15-21 severe): 0 Source: Developed by Drs. Socrates Dueñas, Tatiana Diego, Augusto Franco and colleagues, with an educational rodney from [employer]. Review of Systems Const Denies fatigue, Denies fever(s) and Denies headache(s) ENT Denies dysphagia, Denies dizziness, Denies headache(s), Denies neck pain, Denies odynophagia and Denies sore throat Card Denies chest pain, Denies palpitations and Denies dyspnea Resp Denies chest congestion, Denies cough and Denies dyspnea GI Denies abdominal pain, Denies constipation, Denies dysphagia, Denies heartburn, Denies diarrhea, Denies nausea, Denies odynophagia and Denies vomiting Details: (+) lare left inguinal hernia Denies difficulty urinating, Denies dysuria, Denies nocturia and Denies urinary frequency Musc Denies back pain and Denies neck pain Skin/Breast Denies rash Neuro Denies dizziness and Denies headache(s) Endo Denies fatigue and Denies palpitations Physical exam (Primary Care) Vital Signs: Last Vital Signs Pulse 70 02/20/25 15:26 BP 138/82 02/20/25 15:26 Pulse Ox 96 02/20/25 15:26 Oxygen Delivery Method Room Air 02/20/25 15:26 BMI result Body Mass Index 23.6 Tobacco/Smoking Status: Tobacco use Status Tobacco use date assessed 02/20/25 02/20/25 15:29 Patient Tobacco Use Status Never used Tobacco 02/20/25 15:29 e-Cigarette/Vaping Use Never Used 02/20/25 15:29 PHQ-9: PHQ-9 Score PHQ-9: Total score 0 02/20/25 15:29 Depression Screening Interpretation: Negative Thrive Assessment: Date of Thrive Assessment Date Thrive assessed 02/20/25 02/20/25 15:29 Currently or been in a relationship where the following occur: No concerns reported Const General: no acute distress and alert Neck Neck: Yes supple and No lymphadenopathy Thyroid: Thyroid normal Resp Auscultation: clear to auscultation bilaterally, no rales and no wheezes Cardio Rate: regular rate Rhythm: regular rhythm Heart sounds: no murmurs GI Palpation (GI): Soft to palpation and nontender Auscultation: normal bowel sounds Other: (+) large reducible left inguinal hernia General: Yes no CVA tenderness Back/Spine/Pelvis Back: no CVA tenderness Extrem General: Yes no clubbing, cyanosis or edema Coding Level of Care Code Est Pt Level 3 (45687) Diagnoses Left inguinal hernia K40.90 Additional Codes PHQ-9 - 03181 - PHQ-9 Billing: Yes ([id number]) Assessment & Plan Assessment & Plan (1) Left inguinal hernia: Code(s): K40.90 - Unilateral inguinal hernia, without obstruction or gangrene, not specified as recurrent Category: Medical Plan: Will refer patient to surgery for further evaluation and management and likely, surgical repair of his left inguinal hernia Plan To return as scheduled in June 2025 for his annual physical examination Orders: Referrals General Surgery Referral K40.90 - Unilateral inguinal hernia, without obstruction or gangrene, not specified as recurrent
== END 2025-02-20 16:01 | disposition home or self-care (01) ==
LOC: HO.HMCH 15:23
PROVIDERS: PCP Internal Medicine; Visit Provider Internal Medicine
DX: K40.90 Unilateral inguinal hernia, without obstruction or gangrene, not specified as recurrent (principal)

== ENCOUNTER → 2025-02-20 15:23 | Outpatient (BNVA) | payer MEDICARE, SELFPAY | PROVIDERS: PCP Internal Medicine; Visit Provider Internal Medicine | DX: K40.90 Unilateral inguinal hernia, without obstruction or gangrene, not specified as recurrent (principal) | CPT/HCPCS: 96127; 99212 ==

== ENCOUNTER 2025-04-11 11:14 | Outpatient (AMB) | payer MEDICARE, SELFPAY ==
--- NOTE | 2025-04-11 11:19 | MHC.OFFVIS ---
Vital Signs 04/11/25 11:21 Height 5 ft 9 in Weight 161 lb BMI 23.8 BP 152/76 H Blood Pressure Location Rt brachial Position Sitting Pulse 74 Intake Visit Reasons: Unilateral inguinal hernia Intake Note: Patient referred by pcp Dr. Iqbal for assessment of Unilateral hernia. Patient c/o: on and off abdominal pain, hernia bulging out. For the most part normal BM. On and off diarrhea, constipation. Railroad Engineer Required: No Accompanied by: Self / Same As Patient Allergies Biaxin Allergy (Intermediate, Verified 04/11/25 11:20) vomiting, nausea Medication List - Last Reconciled 04/11/25 by Darian Gamble MD lisinopril 10 mg PO DAILY 90 days sildenafil 50 mg PO DAILY PRN 30 days HPI HPI Unilateral inguinal hernia: Details: 69-year-old male referred for a left inguinal hernia. He says he has noticed this reducible mass on his left groin for about 3 months now. This however has been increasing in size. This has been also been getting more uncomfortable. He denies any GI complaints. He says that seems seems to get bigger at the end of the day or when he is doing strenuous activities. [facility] Medical History Renal calculi Vitamin D deficiency Benign essential hypertension Erectile dysfunction Rosacea Surgical History History of colonoscopy History of esophagogastroduodenoscopy (EGD) Family History Father Alzheimers disease Mother Lung cancer Hypertension Brother Throat cancer Social History Housing: House Patient Tobacco Use Status: Never used Tobacco e-Cigarette/Vaping Use: Never Used Second Hand Smoke Exposure: No service: No Current occupational status: employed Cognitive needs: No Hearing needs: No Vision needs: Yes Review of Systems Const Denies chills and Denies fever(s) Card Denies chest pain, Denies dyspnea and Denies dyspnea on exertion Resp Denies cough, Denies dyspnea and Denies dyspnea on exertion GI Denies hematochezia and Denies change in bowel habits Denies hematuria and Denies difficulty urinating Musc Denies back pain and Denies limited range of motion Neuro Denies focal weakness and Denies convulsions Psych Denies depression and Denies mood swings Physical Exam Vital Signs: Last Vital Signs Pulse 74 04/11/25 11:21 BP 152/76 H 04/11/25 11:21 BMI result Body Mass Index 23.8 Const General: comfortable and no acute distress Orientation/consciousness: patient oriented x3 Neck Neck: Yes no lymphadenopathy Resp Auscultation: clear to auscultation bilaterally Cardio Rhythm: regular rhythm GI Other: Reducible left inguinal hernia Palpation (GI): Soft to palpation, nontender and no guarding Neuro General: patient oriented x3 Assessment & Plan Assessment & Plan (1) Left inguinal hernia: Code(s): K40.90 - Unilateral inguinal hernia, without obstruction or gangrene, not specified as recurrent Category: Medical Plan: He has a reducible left inguinal hernia. He wants to proceed with repair I explained to him the technique of repair with mesh placement. I reviewed the risks including but not limited to bleeding, infections, injury to the vas deferens, scrotum or bowel, recurrence, prolonged postop pain, as well as the benefits and alternatives. I reviewed with him what to expect postoperatively He understands and wants to proceed. Coding Level of Care Code New Pt Level 3 (37861) Diagnoses Left inguinal hernia K40.90
[2025-04-11 11:21] VITALS: BP 152/76; PULSE 74; BMI 23.8
== END 2025-04-11 12:24 | disposition home or self-care (01) ==
LOC: HO.HGS 11:15
PROVIDERS: PCP Internal Medicine; Visit Provider Surgery
DX: K40.90 Unilateral inguinal hernia, without obstruction or gangrene, not specified as recurrent (principal)
CPT/HCPCS: 99203

== ENCOUNTER → 2025-04-11 11:14 | Outpatient (BNVA) | payer MEDICARE, SELFPAY | PROVIDERS: PCP Internal Medicine; Visit Provider Surgery | DX: K40.90 Unilateral inguinal hernia, without obstruction or gangrene, not specified as recurrent (principal) | CPT/HCPCS: 99202 ==

== ENCOUNTER 2025-05-03 10:35 | Day surgery (SDC) | payer MEDICARE, SELFPAY ==
[2025-05-01 10:25] VITALS: BMI 23.8
--- NOTE | 2025-05-01 11:30 | HO.ANESPROP2 ---
Documented by User: Rand David NP 05/01/25 11:31 HPI - Anesthesia Eval Consult details Narrative: 69 yr old male for left?Repair Hernia Inguinal Reducible with mesh PMFSH Active Problems Active Problems: All Active Problems Left inguinal hernia (Acute) Colon cancer screening (Acute) Renal calculi (Acute) Hematuria (Acute) Vitamin D deficiency (Acute) Benign essential hypertension (Acute) Annual physical exam (Acute) Erectile dysfunction (Acute) Rosacea (Acute) Past Medical History Medical History Renal calculi Vitamin D deficiency Benign essential hypertension Erectile dysfunction Rosacea Family History Family History Father Alzheimers disease Mother Lung cancer Hypertension Brother Throat cancer Surgical History Surgical History History of colonoscopy History of esophagogastroduodenoscopy (EGD) Social History Social History Housing: House Patient Tobacco Use Status: Never used Tobacco e-Cigarette/Vaping Use: Never Used Second Hand Smoke Exposure: No Use of substances other than those prescribed or required for medical reasons: No Advance Directives on File: No service: No Current occupational status: employed Cognitive needs: No Hearing needs: No Vision needs: Yes Meds Allergies Allergy/AdvReac Type Severity Reaction Status Date / Time clarithromycin (From Biaxin) Allergy Intermediate Nausea and Verified 05/01/25 10:21 Vomiting Exam Height,Weight and Vital Signs: Height 5 ft 9 in Weight 73.028 kg Documented by User: Aisha Amezcua MD 05/03/25 13:58 PMFSH Past Medical History Medical History Renal calculi Vitamin D deficiency Benign essential hypertension Erectile dysfunction Rosacea Family History Family History Father Alzheimers disease Mother Lung cancer Hypertension Brother Throat cancer Surgical History Surgical History History of colonoscopy History of esophagogastroduodenoscopy (EGD) History of Problems with Anesthesia: No Social History Social History Housing: House Patient Tobacco Use Status: Never used Tobacco e-Cigarette/Vaping Use: Never Used Second Hand Smoke Exposure: No Use of substances other than those prescribed or required for medical reasons: No Advance Directives on File: No service: No Current occupational status: employed Cognitive needs: No Hearing needs: No Vision needs: Yes Meds Allergies Allergy/AdvReac Type Severity Reaction Status Date / Time clarithromycin (From Biaxin) Allergy Intermediate Nausea and Verified 05/01/25 10:21 Vomiting Exam Airway Mallampati Class: II TM Dist: >3cm Neck ROM: Full Loose/Missing/Broken Teeth: No Heart: RRR Lungs: CTA Assessment and Plan Assessment Anesthesia Assessment: Anesthesia Plan Discussed and Chart Reviewed Final Anesthetic Review History of Problems with Anesthesia: No NPO: Yes ASA Class: II Final Preanesthetic Review: Meds/Allgs Chart Reviewed, Consent Obtained/Reviewed and Anes Risks/Benef Reviewed Patient Risk: Low Procedure Risk: Low Anesthetic Plan Anesthetic Plan: GA Disposition: Standard PACU
[2025-05-03 11:12] VITALS: BMI 23.6
[2025-05-03] MEDS: Lactated Ringers 1,000 ML 100 ML IVCONT (11:25)
[2025-05-03 11:26] VITALS: BP 118/82; PULSE 63; RESP 16; TEMP 37.1; O2SAT 98
--- NOTE | 2025-05-03 14:14 | MHC.SHP ---
Pre-Procedural Eval Section A - 24 Hr Update-Section A only Date of Service: 05/03/25 The patient is an INPATIENT: No Changes since office visit: No Cold of Flu in the past 2 weeks, No New Medical Problems, No Changes in Medication and No Patient answered all questions The patient has been examined within 24 hours of the surgical procedure. The History & Physical has been completed within 30 days and I have reviewed it.: Yes Section B - Complete if H&P > 30 days Chief Complaint: Unilateral inguinal hernia, without obstruction Allergies: Allergies Allergy/AdvReac Type Severity Reaction Status Date / Time clarithromycin (From Biaxin) Allergy Intermediate Nausea and Verified 05/01/25 10:21 Vomiting Plan I have reviewed the history and physical and performed a pertinent physical examination on my patient. No changes have occurred unless specified. Time Spent With Patient Time: Total time managing care of this patient today ____ minutes.
--- NOTE | 2025-05-03 15:36 | W.PM.OPN ---
Operative Note Operative Note Date of Service: 05/03/25 Narrative: Preop diagnosis: Left inguinal hernia, reducible Postop diagnosis: The same, indirect Procedure: Repair of a left inguinal hernia with mesh Surgeon: Darian Gamble MD entry level administrative assistant: LORNA Meadows The patient is a 69-year-old male either reducible mass in the left groin consistent with a left inguinal hernia. He understood the technique of repair. He is aware of the risks, benefits, and alternatives. He was brought to the operating room. He was placed supine under general anesthesia via laryngeal mask airway. The left groin was prepped and draped in the usual sterile fashion. A surgical time-out was done. The patient received cefazolin 2 g IV preoperatively . I infiltrated the planned line of incision with lidocaine 1%. I made a short incision in the skin along an imaginary line from the anterior superior iliac spine to the pubic ramus with a blade 15. This has carried down with electrocautery through the full-thickness of the skin and subcutaneous fat until the external oblique was visualized. I bluntly dissected the external oblique to define the external ring. I made a short incision on the external oblique overlying the inguinal canal with a blade 15. This incision was extended inferomedially to connect with the external ring. I applied hemostats on the divided edges of the aponeurosis. I did blunt dissection of the underside of the aponeurosis to create space for the mesh. The spermatic cord was seen along with the hernia. The hernia contained fat. This was going through the internal ring so this was an indirect hernia. I bluntly dissected this cord and its contents with my index finger until was able to pass a Cynthia drain around this. This Cynthia drain was used for retraction. I then identified the vas deferens and the accompanying vessels. I gently dissected the hernia contents off of the rest of the cord until I was able to reduce this through the internal ring. This was a large empty sac so I twisted this, applied the clamp at the base, transected above the clamp and suture ligated this with the Polysorb 2-0.I reinforced the internal ring with a medium-sized plug. The plug was secured with Prolene 2 sutures to the shelving edge of the inguinal ligament laterally and the internal oblique superiorly medially. I reinforced the floor of the canal with a keyhole mesh. The tails of the mesh were passed around the cord at the level of the internal ring and secured together around the cord with Prolene 2-0 sutures. I secured the mesh to the shelving edge of the inguinal ligament laterally and the internal oblique superiorly medially as well as the pubic ramus inferomedially with Prolene 2-0 sutures. The Cynthia drain was removed. I irrigated. Once hemostasis was confirmed, I reapposed the the external oblique aponeurosis with a running 2-0 stitch to re-create the external ring. The subcutaneous layer was reapposed with Polysorb 3-0 simple interrupted sutures. Skin closure was achieved with Polysorb 4-0 subcuticular running stitch The area was infiltrated with Marcaine 0.5% for postop analgesia. Dressings were applied and the procedure was completed The patient tolerated the procedure well. There were no immediate complications. Initial and final counts of sponges and instruments were correct. Estimated blood loss was less than 25 cc. The patient was extubated without difficulty and transferred to the recovery room with stable vital signs.
[2025-05-03 15:40] VITALS: BP 127/73; PULSE 60; RESP 18; TEMP 36.6; O2SAT 99
[2025-05-03 15:45] VITALS: BP 127/68; PULSE 54; RESP 13; O2SAT 99
[2025-05-03 15:50] VITALS: BP 129/79; PULSE 58; RESP 13; O2SAT 99
[2025-05-03 15:55] VITALS: BP 128/73; PULSE 58; RESP 15; O2SAT 97
[2025-05-03 16:10] VITALS: BP 128/73; PULSE 50; RESP 19; TEMP 36.2; O2SAT 99
== END 2025-05-03 16:39 | disposition home or self-care (01) ==
PROVIDERS: PCP Internal Medicine; Visit Provider Surgery
PROC: (CPT 49505; principal; 2025-05-03 14:50)
DX: K40.90 Unilateral inguinal hernia, without obstruction or gangrene, not specified as recurrent (principal); I10 Essential (primary) hypertension; E55.9 Vitamin D deficiency, unspecified; L71.9 Rosacea, unspecified; N20.0 Calculus of kidney; N52.9 Male erectile dysfunction, unspecified; Z79.899 Other long term (current) drug therapy; Z88.1 Allergy status to other antibiotic agents
CPT/HCPCS: 49505; 88302; C1781; J0690; J1100; J1885; J2003; J2250; J2405; J2704; J2795; J3010

== ENCOUNTER → 2025-05-03 10:35 | Outpatient (BNV) | payer MEDICARE, SELFPAY | PROVIDERS: PCP Internal Medicine; Visit Provider Surgery | DX: K40.90 Unilateral inguinal hernia, without obstruction or gangrene, not specified as recurrent (principal) | CPT/HCPCS: 49650 ==

== ENCOUNTER 2025-05-16 09:54 | Outpatient (AMB) | payer MEDICARE, SELFPAY ==
--- NOTE | 2025-05-16 09:56 | A.OFFVIS_ITS ---
Vital Signs 05/16/25 10:02 Weight 159 lb BP 162/95 H Blood Pressure Location Rt brachial Position Sitting Pulse 71 Intake Visit Reasons: S/P LIH w/mesh Intake Note: Patient here s/p repair of a left inguinal hernia with mesh. Patient c/o: reports incision healing well. Denies bleeding, pain. Taking Ibuprofen as needed. Never took Oxycodone. Keeping incision covered with gauze and bandage. Surgery (): 05-03-2025 Investigative Writer Required: No Accompanied by: Self / Same As Patient Allergies clarithromycin (From Biaxin) Allergy (Intermediate, Verified 05/16/25 10:02) Nausea and Vomiting HPI HPI S/P LIH w/mesh: Details: Clinton Tracey is a 69 year old male who underwent repair of left inguinal hernia with mesh on 05/03/[address] Gamble. He reports tolerating the procedure well. He had very minimal incisional pain following and only took ibuprofen twice for this. He is tolerating a solid diet and moving his bowels normally. He does note a small bulge around his incision site that he noticed when he took his dressing off and is a little concerned about this. [facility]ENDING SALE TO [facility] Medical History Renal calculi Vitamin D deficiency Benign essential hypertension Erectile dysfunction Rosacea Surgical History (Updated 05/16/25 @ 11:09 by Yina Dugan PA-C) History of left inguinal hernia repair (05/03/25) History of colonoscopy History of esophagogastroduodenoscopy (EGD) Family History Father Alzheimers disease Mother Lung cancer Hypertension Brother Throat cancer Social History Housing: House Patient Tobacco Use Status: Never used Tobacco e-Cigarette/Vaping Use: Never Used Second Hand Smoke Exposure: No service: No Current occupational status: employed Cognitive needs: No Hearing needs: No Vision needs: Yes Review of Systems Const Denies chills and Denies fever(s) Card Denies dyspnea Resp Denies cough and Denies dyspnea GI Reports as per HPI, Denies nausea and Denies vomiting Skin/Breast Reports as per HPI and Denies rash Physical Exam Vital Signs: Last Vital Signs Pulse 71 05/16/25 10:02 BP 162/95 H 05/16/25 10:02 Const General: comfortable, no acute distress and alert Orientation/consciousness: patient oriented x3 Resp Effort & Inspection: normal respiratory effort GI Other: abdomen soft, nondistended left inguinal hernia incision steris removed, incision well healed and approximated, no erythema, mild underlying induration medially and some edema of lateral aspect without fluctuance or palpable hernia with valsalva Palpation (GI): nontender and no guarding Skin General skin exam: no rashes or lesions noted Neuro General: patient oriented x3 and moves all extremities Results Reviewed Results Reviewed: Hernia, herniorrhaphy: Fibromembranous tissue with mesothelial lining consistent with hernia sac Assessment & Plan Assessment & Plan (1) S/P inguinal hernia repair: Code(s): Z98.890 - Other specified postprocedural states; Z87.19 - Personal history of other diseases of the digestive system Category: Surgical Plan 69 year old male who underwent repair of left inguinal hernia with mesh on 05/03/25. He tolerated the procedure well. His incision is clean appearing and well approximated without evidence of infection. He does have some mild edema at the lateral aspect but no evidence of hernia recurrence. He was reassured that the swelling which is normal post operatively and will improve over time. He can apply ice packs to the area a few times a day to help. He is to continue no heavy lifting restrictions for a total of 6 weeks following the procedure. He is overall doing very well and can follow up as needed and it was discussed he can return if the swelling does not improve in 4-6 week period. He is comfortable with plan, all questions answered. Coding Level of Care Code Global (19267) Diagnoses S/P inguinal hernia repair Z98.890; Z87.19
[2025-05-16 10:02] VITALS: BP 162/95; PULSE 71
== END 2025-05-16 10:25 | disposition home or self-care (01) ==
PROVIDERS: PCP Internal Medicine; Visit Provider Physician Assistant Surgical
DX: Z98.890 Other specified postprocedural states (principal); Z87.19 Personal history of other diseases of the digestive system
CPT/HCPCS: 99024

== ENCOUNTER → 2025-05-16 09:54 | Outpatient (BNVA) | payer MEDICARE, SELFPAY | PROVIDERS: PCP Internal Medicine; Visit Provider Physician Assistant Surgical | DX: R10.9 Unspecified abdominal pain (principal); Z98.890 Other specified postprocedural states; Z87.19 Personal history of other diseases of the digestive system; I10 Essential (primary) hypertension | CPT/HCPCS: 99212 ==

== ENCOUNTER 2025-06-25 08:47 | Outpatient (AMB) | payer MEDICARE, SELFPAY ==
[2025-06-25 08:50] VITALS: BP 132/78; PULSE 75; O2SAT 97; BMI 23.5
--- NOTE | 2025-06-25 08:50 | MHC.PC.OV ---
Vital Signs 06/25/25 08:50 Height 5 ft 9 in Weight 159 lb BMI 23.5 BP 132/78 Blood Pressure Location Lt brachial Position Sitting Pulse 75 Pulse Source Pulse Oximeter Pulse Oximetry (%) 97 Oxygen Delivery Method Room Air Intake Visit Reasons: annual PE - see comments Special Librarian Required: No Accompanied by: Self / Same As Patient Allergies clarithromycin (From Biaxin) Allergy (Intermediate, Verified 06/25/25 09:32) Nausea and Vomiting Medication List - Last Reconciled 06/25/25 by Baljeet Iqbal MD doxycycline monohydrate 100 mg PO DAILY PRN 90 days ibuprofen 600 mg PO Q6H PRN lisinopril 10 mg PO DAILY 90 days sildenafil 50 mg PO DAILY PRN 30 days Tobacco use date assessed: 06/25/25 Fall risk assessment: No Falls in past year Last assessed Fall Risk: 06/25/25 Dental Screening Dental Screen Date: 06/25/25 Did you have a dental visit in the last 12 months?: Yes Did you have a dental problem in the last 6 months where you did not have access to dental care?: No Was dental information given to patient?: Patient has dentist HPI annual PE - see comments HPI Details Patient comes in today for his annual physical examination States that he feels okay He denies any headaches or dizziness Denies any chest pains, no SOB No nausea/vomiting, no abdominal pain although he still has occasional twinges of pain with exertion over his left lower abdominal area where he had his hernia repair surgery less than 2 months ago No change in bowel habits noted He denies any acute urinary symptoms He has not been able to get his labs done yet - states that he will try to get them done PADMA over the next few days He is due for repeat colonoscopy this year - his last one was done in [address] Cristina Covington [facility] Medical History Renal calculi Vitamin D deficiency Benign essential hypertension Erectile dysfunction Rosacea Surgical History History of left inguinal hernia repair (05/03/25) History of colonoscopy History of esophagogastroduodenoscopy (EGD) Family History Father Alzheimers disease Mother Lung cancer Hypertension Brother Throat cancer Social History Housing: House Patient Tobacco Use Status: Never used Tobacco e-Cigarette/Vaping Use: Never Used Second Hand Smoke Exposure: No service: No Current occupational status: employed Cognitive needs: No Hearing needs: No Vision needs: Yes Questionnaire PHQ-9 Over the last 2 weeks, how often have you been bothered by any of the following problems? 1. Little interest or pleasure in doing things: not at all 2. Feeling down, depressed, or hopeless: not at all 3. Trouble falling or staying asleep, or sleeping too much: not at all 4. Feeling tired or having little energy: not at all 5. Poor appetite or overeating: not at all 6. Feeling bad about yourself - or that you are a failure or have let yourself or your family down: not at all 7. Trouble concentrating on things, such as reading the newspaper or watching television: not at all 8. Moving or speaking so slowly that other people could have noticed. Or the opposite - being so fidgety or restless that you have been moving around a lot more than usual: not at all 9. Thoughts that you would be better off or of hurting yourself in some way: not at all Total score: 0 Depression Screening Interpretation: Negative Depression Screening Done: Yes 67599 - PHQ-9 Billing: Yes Source: Developed by Drs. Socrates Dueñas, Tatiana Diego, Augusto Franco and colleagues, with an educational rodney from [employer]. Thrive Questionnaire Date Thrive assessed: 06/25/25 I am a: Patient What is your living situation today?: I have a steady place to live Within the past 12 months, did the food you bought not last and you didn't have the money to get more?: Never true Within the past 12 months, did you worry whether your food would run out before you got money to buy more?: Never true Do you have trouble paying for medicines?: No Do you have trouble getting transportation to medical appointments?: No Do you have trouble paying your heating and electricity bill?: No Do you have trouble taking care of your child, family member or friend?: No Do you have trouble with day-to-day activities such as bathing, preparing meals, shopping, managing finances, etc.?: No Are you currently unemployed and looking for a job?: No Are you interested in more education?: No Please select the resources that you would like help with: None Currently or been in a relationship where the following occur: No concerns reported THRIVE Score: 0 AUDIT C Alcohol Use Questionnaire (AUDIT-C) 1. How often do you have a drink containing alcohol?: Monthly or less 2. How many drinks containing alcohol do you have on a typical day when you are drinking?: 1 or 2 3. How often do you have six or more drinks on one occasion?: Never Total Score: 1 Score Reviewed/Action Taken: Yes JULI-7 AMB Questionnaire JULI-7 Date JULI - 7 assessed: 06/25/25 Feeling nervous, anxious, or on edge: 0 = Not at all Not being able to stop or control worryin = Not at all Worrying too much about different things: 0 = Not at all Trouble relaxin = Not at all Being so restless that it is hard to sit still: 0 = Not at all Becoming easily annoyed or irritable: 0 = Not at all Feeling afraid as if something awful might happen: 0 = Not at all Total JULI-7 score (0-4 normal; 5-9 mild; 10-14 moderate; 15-21 severe): 0 Source: Developed by Drs. Socrates Dueñas, Tatiana Diego, Augusto Franco and colleagues, with an educational rodney from [employer]. Review of Systems Const Denies chills, Denies fatigue, Denies fever(s), Denies headache(s), Denies malaise and Denies weakness Eyes Denies blurry vision, Denies change in vision, Denies irritation and Denies itchy eyes ENT Denies dysphagia, Denies dizziness, Denies otalgia, Denies headache(s), Denies nasal congestion, Denies neck pain, Denies odynophagia and Denies sore throat Card Denies rapid heart rate, Denies irregular heart rhythm, Denies palpitations and Denies dyspnea Resp Denies chest congestion, Denies cough, Denies dyspnea and Denies wheezing GI Denies abdominal pain, Denies bloating, Denies constipation, Denies dysphagia, Denies heartburn, Denies diarrhea, Denies nausea, Denies odynophagia and Denies vomiting Denies hematuria, Denies difficulty urinating, Denies dysuria, Denies urinary frequency and Denies urinary urgency Musc Denies back pain, Denies arthralgias, Denies joint swelling, Denies muscle weakness and Denies neck pain Skin/Breast Denies change in pigmentation, Denies lesions, Denies rash and Denies unusual bruising Neuro Denies dizziness, Denies headache(s), Denies paresthesias and Denies weakness Endo Denies fatigue and Denies palpitations Aller/Immun Denies itchy eyes and Denies wheezing Physical exam (Primary Care) Vital Signs: Last Vital Signs Pulse 75 06/25/25 08:50 BP 132/78 06/25/25 08:50 Pulse Ox 97 06/25/25 08:50 Oxygen Delivery Method Room Air 06/25/25 08:50 BMI result Body Mass Index 23.5 Tobacco/Smoking Status: Tobacco use Status Tobacco use date assessed 06/25/25 06/25/25 09:00 Patient Tobacco Use Status Never used Tobacco 06/25/25 09:00 e-Cigarette/Vaping Use Never Used 06/25/25 09:00 PHQ-9: PHQ-9 Score PHQ-9: Total score 0 06/25/25 09:00 Depression Screening Interpretation: Negative Thrive Assessment: Date of Thrive Assessment Date Thrive assessed 06/25/25 06/25/25 09:00 Currently or been in a relationship where the following occur: No concerns reported Const General: no acute distress, alert and awake Orientation/consciousness: patient oriented x3 HENMT Head: Yes normocephalic and Yes atraumatic Ears: external ears normal, TM's normal bilaterally and EAC's normal General nose exam: No nasal discharge present Face and sinus: Yes normal facial exam and Yes sinuses nontender Teeth and gingiva: dentition normal Throat: Yes posterior oropharynx normal and Yes tonsils normal (no TP congestion) Eyes Eyelids: Yes eyelids normal Conjunctivae: conjunctivae normal Pupils: Equal, round and reactive pupils present EOM: EOMs intact bilaterally Neck Neck: Yes no lymphadenopathy and Yes supple Thyroid: Thyroid normal Resp Auscultation: clear to auscultation bilaterally, no rales and no wheezes Cardio Rate: regular rate Rhythm: regular rhythm Heart sounds: no murmurs GI Palpation (GI): Soft to palpation, nontender and No hepatosplenomegaly present Auscultation: normal bowel sounds General: Yes no CVA tenderness Back/Spine/Pelvis Back: no CVA tenderness Thoracic/Lumbar Spine: thoracic and lumbar spine normal to inspection Skin Lesions: no lesions Rashes: no rashes Neuro General: patient oriented x3, moves all extremities, no focal motor deficits and CN's II-XI intact bilaterally Cranial nerves: Yes Equal, round and reactive pupils present Cognition (Neuro): normal cognition Gait exam (Neuro): Normal gait present Extrem General: Yes no clubbing, cyanosis or edema Coding Level of Care Code Est Pt Prev Care >65y(05351) Diagnoses Annual physical exam Z00.00 Benign essential hypertension I10 Vitamin D deficiency E55.9 Rosacea L71.9 Renal calculi N20.0 Erectile dysfunction, unspecified erectile dysfunction type N52.9 Erectile dysfunction type: unspecified Colon cancer screening Z12.11 Additional Codes PHQ-9 - 15820 - PHQ-9 Billing: Yes ([id number]) Assessment & Plan Assessment & Plan (1) Annual physical exam: Code(s): Z00.00 - Encounter for general adult medical examination without abnormal findings Category: Medical Plan: Patient is instructed to go and get his labs done PADMA to complete his annual exam today He is due for his repeat colonoscopy this year - his last one was done in [address] Cristina Covington (2) Benign essential hypertension: Code(s): I10 - Essential (primary) hypertension Category: Medical Plan: Reinforced low sodium diet - goal is systolic BP of 120 to 130 mm or less Continue Lisinopril 10 mg QD (3) Vitamin D deficiency: Code(s): E55.9 - Vitamin D deficiency, unspecified Category: Medical Plan: Will recheck his Vitamin D level for follow up (4) Rosacea: Code(s): L71.9 - Rosacea, unspecified Category: Medical Plan: He takes Doxycycline 100 mg QD for at least a month or two as needed for flare ups of his rosacea Follow up with dermatology as scheduled (5) Renal calculi: Code(s): N20.0 - Calculus of kidney Category: Medical Plan: Retroperitoneal US done at [facility] in February 2023 showed (+) 0.4 cm renal stone in the left lower pole of the left kidney Patient states that he has not had any bouts or flare ups of his kidney stones lately He is reminded to increase his oral fluid intake regularly (6) Erectile dysfunction: Code(s): N52.9 - Male erectile dysfunction, unspecified Category: Medical Qualifiers: Erectile dysfunction type: unspecified Qualified Code(s): N52.9 - Male erectile dysfunction, unspecified Plan: Continue Sildenafil 50 mg QD PRN (7) Colon cancer screening: Code(s): Z12.11 - Encounter for screening for malignant neoplasm of colon Category: Medical Plan: Per request, will refer him now to Dr. Valiente for repeat colonoscopy Plan Follow up in 6 months Orders: Referrals Gastroenterology Referral Z12.11 - Encounter for screening for malignant neoplasm of colon Medications: Changed From doxycycline monohydrate 100 mg PO DAILY PRN 90 caps 1RF rosacea flare up 90 days L71.9 - Rosacea, unspecified To doxycycline monohydrate DO NOT REMOVE FROM PATIENT'S ACTIVE MED LIST !!!!! 100 mg PO DAILY PRN 90 caps 1RF rosacea flare up 90 days L71.9 - Rosacea, unspecified
== END 2025-06-25 09:47 | disposition home or self-care (01) ==
LOC: HO.HMCH 08:48
PROVIDERS: PCP Internal Medicine; Visit Provider Internal Medicine
DX: Z00.00 Encounter for general adult medical examination without abnormal findings (principal); I10 Essential (primary) hypertension; E55.9 Vitamin D deficiency, unspecified; L71.9 Rosacea, unspecified; N20.0 Calculus of kidney; N52.9 Male erectile dysfunction, unspecified; Z12.11 Encounter for screening for malignant neoplasm of colon

== ENCOUNTER → 2025-06-25 08:47 | Outpatient (BNVA) | payer MEDICARE, SELFPAY | PROVIDERS: PCP Internal Medicine; Visit Provider Internal Medicine | DX: Z00.00 Encounter for general adult medical examination without abnormal findings (principal); I10 Essential (primary) hypertension; E55.9 Vitamin D deficiency, unspecified; L71.9 Rosacea, unspecified; N20.0 Calculus of kidney; N52.9 Male erectile dysfunction, unspecified | CPT/HCPCS: 96127; 99397 ==

== ENCOUNTER 2025-07-20 08:32 | Outpatient (REF) | payer MEDICARE, SELFPAY ==
[2025-07-20 09:11] LABS: MANUAL DIFF FLAG NO
[2025-07-20 10:18] LABS: Hematocrit 46.1 % (42.0-52.0); Hemoglobin 15.3 g/dl (14.0-18.0); Imm Gran Abs Auto 0.01 X10*3/uL (0.00-0.03); Imm Gran Pct Auto 0.2 % (0.0-0.4); Lymphocytes Absolute Auto 1.8 X10*3/uL (1.2-4.9); Mean Corpuscular HGB Conc 33.2 g/dl (31.0-36.0); Mean Corpuscular Hemoglobin 29.7 pg (27.0-33.0); Mean Corpuscular Volume 89.3 fL (80.0-98.0); NRBC Abs Auto 0.000 X10*3/uL (0.0-0.012); NRBC Pct Auto 0.0 /100WBC (0.0-0.2); Platelet Count 203 X10*3/uL (160-400); Red Blood Count 5.16 X10*6/uL (4.60-5.80); White Blood Count 5.3 X10*3/uL (4.8-10.8)
[2025-07-20 10:52] LABS: Alanine Aminotransferase 34 U/L (0-40); Albumin Level 4.4 g/dL (3.5-5.0); Alkaline Phosphatase 73 U/L (39-117); Anion Gap 11 (12-20); Aspartate Amino Transferase 32 U/L (5-37); Blood Urea Nitrogen 18 mg/dL (9-16); Calcium 9.0 mg/dL (8.4-10.2); Carbon Dioxide 31 mmol/L (22-29); Chloride 106 mmol/L (96-108); Cholesterol 187 mg/dL (<200); Estimated Glomerular Filt Rate > 60; HDL Cholesterol 62 mg/dL (>40); Potassium 4.7 mmol/L (3.3-5.1); Sodium 143 mmol/L (135-145); Total Protein 6.5 g/dL (6.5-8.0); Triglycerides 59 mg/dL (<150)
[2025-07-20 11:02] LABS: Prostate Specific Antigen 2.25 ng/mL (<0.05-4.0)
[2025-07-20 11:23] LABS: Appearance Urine Clear; Glucose Urine UA Negative (Negative); PH 5.5 (5.0-9.0); Specific Gravity - Urine 1.015 (1.005-1.025); UMIC TRIGGER UACC YES
== END 2025-07-20 08:33 | disposition home or self-care (01) ==
LOC: HO.LAB 08:32
PROVIDERS: PCP Internal Medicine; Visit Provider Internal Medicine
DX: Z00.00 Encounter for general adult medical examination without abnormal findings (principal); E55.9 Vitamin D deficiency, unspecified; E78.00 Pure hypercholesterolemia, unspecified; N40.0 Benign prostatic hyperplasia without lower urinary tract symptoms; D64.9 Anemia, unspecified; Z12.5 Encounter for screening for malignant neoplasm of prostate
CPT/HCPCS: 36415; 80053; 80061; 81001; 81003; 82306; 84153; 84443; 85025